=== PATIENT | female | born 1960 | race Caucasian/White ===

== ENCOUNTER 2019-07-29 19:36 | Emergency (ER) | payer OTHER, SELFPAY ==
[2019-07-29 19:38] VITALS: BP 159/71; PULSE 110; RESP 16; TEMP 36.3; O2SAT 94
--- NOTE | 2019-07-29 21:06 | ED.URI ---
HPI - URI/Sore Throat General Chief Complaint: Upper Respiratory Infection Stated Complaint: fever, cough Time Seen by Provider: 07/29/19 21:00 Source: patient and RN notes reviewed Mode of arrival: other Limitations: no limitations History of Present Illness HPI Narrative: Pt is a 59 y/o female who presents to the ED with c/o a fever and body aches that began Friday (07/26/19) night. Pt states that she believes that she is dehydrated. Pt has been taking Tylenol and Advil, but with no relief of her sx. Pt also reports SOB, cough, wheezing, nausea, nasal discharge, and decreased intake, but denies vomiting. MD elicited complaint: fever and other (body aches) Onset (ago): day(s) (3) Consistency: constant Able to tolerate fluids by mouth: Yes Relieving factors: nothing Associated symptoms: fever, cough, shortness of breath, nausea and other (wheezing, nasal discharge, decreased intake) Treatments prior to arrival: acetaminophen and cold medicine Related Data Allergies Allergy/AdvReac Type Severity Reaction Status Date / Time codeine Allergy Severe SOB Verified 10/24/17 07:08 Review of Systems Review of Systems: All systems reviewed & are unremarkable except as noted in HPI and below Constitutional: Constitutional: Reports fever(s) and Reports poor appetite ENT: Reports nasal discharge Respiratory: Respiratory: Reports cough, Reports dyspnea and Reports wheezing Gastrointestinal: Gastrointestinal: Reports nausea and Denies vomiting Musculoskeletal: Musculoskeletal: Reports myalgias PMFSH Past Medical History Medical History (Updated 07/29/19 @ 21:14 by Viktoriya Loaiza) DDD (degenerative disc disease) Diabetes Hyperlipidemia Kidney stone on right side Seasonal allergies Sleep apnea Surgical History Surgical History (Updated 07/29/19 @ 21:14 by Viktoriya Loaiza) H/O colonoscopy H/O lithotripsy H/O oral surgery History of bladder surgery History of hysterectomy Hx of section Family History Family History (Updated 12/22/15 @ 23:19 by DOCTOR UNKNOWN) Grandparent Cerebrovascular accident Family history of malignant neoplasm of cervix Father Family history of diabetes mellitus in first degree relative Social History Social History Gender identity (if verbalized by the patient): Female Exam Const: General: no acute distress, alert and ill appearing Orientation/consciousness: patient oriented x3 HENMT: General nose exam: Nasal discharge present Eyes: Pupils: Equal, round and reactive pupils present Chest: Chest palpation & inspection: normal inspection of the chest and abnormal inspection of the chest Resp: Effort & Inspection: normal respiratory effort Auscultation: clear to auscultation bilaterally Cardio: Rate: regular rate Rhythm: regular rhythm GI: GI Palp: Yes Soft to palpation and No Tenderness to palpation present (GI) Skin: General skin exam: normal color Neuro: General: patient oriented x3 and moves all extremities Speech: normal speech Extrem: General: normal to inspection Course Vital Signs Vital signs: Vital Signs Temperature 36.3 C L 07/29/19 19:38 Pulse Rate 110 H 07/29/19 19:38 Respiratory Rate 16 07/29/19 19:38 Blood Pressure 159/71 H 07/29/19 19:38 Pulse Oximetry 94 07/29/19 19:38 Temperature 36.3 C L 07/29/19 19:38 Pulse Rate 109 H 07/29/19 21:32 Respiratory Rate 20 07/29/19 21:32 Blood Pressure 159/71 H 07/29/19 19:38 Pulse Oximetry 94 07/29/19 19:38 MDM - URI/Sore Throat Differential Diagnosis Differential diagnosis: Likely upper respiratory infection, bronchitis and influenza Medical Records Attestation: I reviewed the patient's medical records. Lab Data Attestation: I reviewed the patient's lab results. Labs: Influenza A Screen Positive Reference Range: Negative Influenza B Screen Negative Reference Range: Negative Discharge Plan Discharge
[2019-07-29] MEDS: PSEUDOEPHEDRINE HCL 30 MG TABLET 60 MG PO (21:17)
[2019-07-29] MEDS: IBUPROFEN 600 MG TABLET PO (21:17)
[2019-07-29 21:25] VITALS: PULSE 106; RESP 20
[2019-07-29] MEDS: ALBUTEROL SULFATE NEB 2.5 MG/0.5 ML INH 5 MG INHALATION (21:25)
[2019-07-29 21:32] VITALS: PULSE 109; RESP 20
== END 2019-07-29 21:52 | disposition home or self-care (01) ==
PROVIDERS: Emergency Provider Emergency Medicine; PCP Family Medicine Adolescent Medicine
DX: J10.1 Influenza due to other identified influenza virus with other respiratory manifestations (principal); E11.9 Type 2 diabetes mellitus without complications; E78.5 Hyperlipidemia, unspecified; Z87.442 Personal history of urinary calculi; G47.30 Sleep apnea, unspecified
CPT/HCPCS: 87804; 94640; 99283; A9270

== ENCOUNTER 2019-08-02 10:03 | Inpatient (IN) | payer OTHER, SELFPAY ==
[2019-08-02] VITALS (8 sets, daily range): BP systolic 125–143; BP diastolic 56–76; PULSE 94–104; RESP 18–25; TEMP 37.1–37.3; O2SAT 92–98
--- NOTE | ~2019-08-02 | XR_ITS ---
XR chest 2V DATE: 08/08/2019 13:50 INDICATION: Pneumonia. Cough, congestion, shortness of breath. TECHNIQUE: PA and lateral views COMPARISON: 08/12/2019 AP and lateral chest 08/02/2019 CT pulmonary scan FINDINGS: There are persistent patchy bibasilar pulmonary infiltrates and/atelectasis. The remaining lung prakash are clear. Normal heart size. No hilar or mediastinal enlargement. No pleural effusion or pulmonary vascular con gestion or pneumothorax. IMPRESSION: Persistent bibasilar infiltrates and/or atelectasis Reviewed, dictated and finalized at location A.
--- NOTE | ~2019-08-02 | XR_ITS ---
EXAMINATION: XR chest 2V 08/02/2019 11:24 INDICATION: Cough, shortness of breath and congestion PROCEDURE: 2 view chest COMPARISON: 03/04/2012 FINDINGS: The lungs are clear. The cardiomediastinal silhouette is within normal limits. There are no pleural effusions. There is no pneumothorax suspected. IMPRESSION: 1: NO ACUTE CARDIOPULMONARY DISEASE. Reviewed, dictated and finalized at location A.
--- NOTE | ~2019-08-02 | CT_ITS ---
EXAMINATION: CTA chest PE protocol DATE: 08/02/2019 14:23 INDICATION: Cough. TECHNIQUE: Computed tomography angiography (CTA) of the chest was performed with 100 mL Omnipaque-350 intravenous contrast timed to evaluate the pulmonary arteries. Coronal maximum intensity projection 3D-reconstructions were created by the technologist. Automated exposure control and iterative reconst ruction technique were employed. The dose-length product was 379.93 mGy-cm. COMPARISON: Chest 2 views 08/02/2019 FINDINGS: There are groundglass opacities, centrilobular nodules, and small airspace opacities in the lower lobes, right middle lobe, and lingula, consistent with pneumonia. No pleural effusion. The hea rt size is normal. No pericardial effusion. There is no pulmonary embolus. There is mild mediastinal and bilateral hilar lymphadenopathy. There is diffuse hepatic steatosis. There is mild thoracic spond ylosis. IMPRESSION: 1. No pulmonary embolus. Sensitivity is moderately decreased by motion artifact. 2. Pneumonia involving the lower lobes, right middle lobe, and lingula. 3. Mild mediastinal and bilateral hilar lymphadenopathy, likely reactive. Reviewed, dictated and finalized at location A. IMPRESSION: 1. No pulmonary embolus. Sensitivity is moderately decreased by motion artifact . 2. Pneumonia involving the lower lobes, right middle lobe, and lingula. 3. Mild mediastinal and bilateral hilar lymphadenopathy, likely reactive.
--- NOTE | 2019-08-02 10:04 | PC.NURSE ---
Attempted to contact Jenny Armendariz for infection control alert on pt, no answer. ED Charge Khadijah aware, I was informed by ED Charge that pt is at low risk for infection and that she can sit in waiting room with other patients as long as she has a mask on.
--- NOTE | 2019-08-02 10:17 | ECG_ITS ---
Measurements Intervals [place] Rate: 95 P: 51 CA: 144 QRS: 2 QRSD: 102 T: 34 QT: 336 QTc: 422 Interpretive Statements SINUS RHYTHM BASELINE WANDER- I, II, AVR, AVL,A VF, V4-V6 BORDERLINE ECG Electronically Signed On 08-02-2019 13:01:18 CDT by Jose Carlos Tolliver D.O.
[2019-08-02 10:48] LABS: Hematocrit 37.3 % (37.0-47.0); Hemoglobin 12.7 g/dL (12.0-15.0); Mean Corpuscular Hemoglobin 29.2 pg (26-34); Mean Corpuscular Volume 85.7 fl (80-100); Mean Platelet Volume 9.8 fl (7.4-10.4); Platelet Count Result 154 k/mm3 (150-375); Red Blood Count 4.35 M/mm3 (4.2-5.4); Red Cell Distribution Width 13.2 % (11.5-14.5); White Blood Count 7.5 K/mm3 (4.5-10.0)
[2019-08-02 10:55] LABS: Band Neutrophils Percent 6 % (0-6); Eosinophils Absolute Manual 0.07 K/mm3 (0.02-0.5); Eosinophils Percent Manual 1 % (0-4); Lymphocytes Absolute Manual 1.05 K/mm3 (1.1-4.5); Monocytes Absolute Manual 0.67 K/mm3 (0.1-0.90); Monocytes Percent Manual 9 % (3-9); Neutrophils Percent Manual 70 % (46-73); Platelet Estimate Adequate (Adequate); Total Cells Counted 100
[2019-08-02 10:59] LABS: Blood Urea Nitrogen 17 mg/dL (7-17); Calcium 9.1 mg/dL (8.4-10.2); Carbon Dioxide 30 mmol/L (22-30); Chloride 92 mmol/L (98-107); Estimated CRCL calculation 55 ml/min; Estimated Glomerular Filt Rate > 60; Glucose 217 mg/dL (65-105); Potassium 3.2 mmol/L (3.4-5.0); Sodium 131 mmol/L (137-145)
--- NOTE | 2019-08-02 12:05 | ED.URI ---
HPI - URI/Sore Throat General Chief Complaint: Upper Respiratory Infection <Niki Soria PA-C - Last Filed: 08/02/19 17:58> Stated Complaint: Cough, Fatigue <Niki Soria PA-C - Last Filed: 08/02/19 17:58> Time Seen by Provider: 08/02/19 11:03 <Niki Soria PA-C - Last Filed: 08/02/19 17:58> Source: patient <LILLY Fragoso Last Filed: 08/02/19 17:58> Mode of arrival: ambulatory <LILLY Fragoso Last Filed: 08/02/19 17:58> Limitations: no limitations <LILLY Fragoso Last Filed: 08/02/19 17:58> History of Present Illness HPI Narrative: Patient presents for reevaluation due to tiredness, congestion and persistent cough. Patient was diagnosed with influenza on at this facility. Patient has been taking decongestant and ibuprofen. Patient no longer has fevers and her body aches have improved with patient is upset because her persistent cough keeps her from sleeping throughout the night and day. Patient's appetite has been slightly decreased however she has been drinking water and Gatorade. Patient has not had any vomiting or diarrhea. Patient states she has not been taking the zofran or using the proair inhaler. Patient has not tried any medications [id number] to alleviate her cough. Patient states her only has issues with his diabetes for which she takes metformin 3 times daily. <LILLY Fragoso Last Filed: 08/02/19 17:58> Related Data Home Medications: Home Medications Medication Instructions Recorded Confirmed dextromethorphan-guaifenesin 1 tablet PO Q12H PRN 08/02/19 [Mucinex DM] <LILLY Fragoso Last Filed: 08/02/19 17:58> Allergies/Adverse Reactions: Allergies Allergy/AdvReac Type Severity Reaction Status Date / Time codeine Allergy Severe SOB Verified 08/02/19 11:26 <LILLY Fragoso Last Filed: 08/02/19 17:58> Review of Systems Review of Systems: Narrative: CONSTITUTIONAL: Denies fever, chills, or sweats. EYES: Denies visual changes, redness, or discharge. ENT: Reports rhinorrhea, congestion, denies sore throat, or otalgia. CARDIOVASCULAR: Denies chest pain, palpitations, or edema. RESPIRATORY: Reports cough denies dyspnea. GASTROINTESTINAL: Denies abdominal pain, nausea, vomiting, or diarrhea. GENITOURINARY: Denies dysuria or hematuria. SKIN: Denies rash or itching. MUSCULOSKELETAL: Denies back pain, joint pain, or myalgia. NEUROLOGIC: Denies headache, numbness, dizziness, or weakness. PSYCHIATRIC: Denies anxiety or depression. <Niki Soria PA-C - Last Filed: 08/02/19 17:58> PMFSH Past Medical History Medical History: Medical History (Updated 08/02/19 @ 15:31 by Niki Soria PA-C) DDD (degenerative disc disease) Diabetes Hyperlipidemia Kidney stone on right side Seasonal allergies Sleep apnea <Niki Soria PA-C - Last Filed: 08/02/19 17:58> Surgical History Surgical History: Surgical History (Updated 07/29/19 @ 21:14 by Viktoriya Loaiza) H/O colonoscopy H/O lithotripsy H/O oral surgery History of bladder surgery History of hysterectomy Hx of section <Niki Soria PA-C - Last Filed: 08/02/19 17:58> Family History Family History: Family History (Updated 12/22/15 @ 23:19 by DOCTOR UNKNOWN) Grandparent Cerebrovascular accident Family history of malignant neoplasm of cervix Father Family history of diabetes mellitus in first degree relative <Niki Soria PA-C - Last Filed: 08/02/19 17:58> Social History Social History: Social History Gender identity (if verbalized by the patient): Female <Niki Soria PA-C - Last Filed: 08/02/19 17:58> Exam Narrative: Exam Narrative: GENERAL: Well-appearing, well-nourished, and in no acute distress. HEAD: Normocephalic, atraumatic. EYES: PERRLA and EOMI. ENT: Nares edematous with clear rhinorrhea, no rhinorrhea or epistaxis. Mucous membranes moist. Or
[2019-08-02] MEDS: ALBUTEROL SULFATE NEB 2.5 MG/0.5 ML INH 5 MG INHALATION (12:14)
[2019-08-02] MEDS: IPRATROPIUM BR 0.02% INH SOLN 0.5 MG/2.5 ML VIAL INHALATION (12:14)
[2019-08-02] MEDS: BENZONATATE 100 MG CAPSULE 200 MG PO (13:00)
[2019-08-02 15:19] LABS: Lactic Acid Reflex 1.4 mmol/L (0.7-2.1)
--- NOTE | 2019-08-02 17:50 | PC.NURSE ---
Pt has repeatedly complained of pain to right hand PIV with Azithromycin infusing. Medication has been briefly paused and then flushed with no evidence of infiltration or blown vein. Right AC PIV started as pt continually c/o right hand pain after 10 minutes of Azithromycin infusion despite no complications noted to IV site.
--- NOTE | 2019-08-02 19:31 | ADMGEN ---
This patient, Kaur Douglas, was admitted to Medical Room 246-01. Patient/family oriented to hospital policies and general routines including ID bracelet, bed and alarms, visiting hours, pain management, procedures, bathroom and other care routines, personal items, smoking policy, room service/diet, and visiting hours. Valuables list has been completed. Information on how to activate the Rapid Response Team has been discussed. Patient/Family are encouraged to report perceived risks to care and to ask questions if they do not understand what they are told or what they should do.
[2019-08-02 20:36] LABS: Glucose Point of Care 243 (65-105)
[2019-08-02] MEDS: POTASSIUM CHLORIDE 20 MEQ TABLET 40 MEQ PO (21:59)
--- NOTE | 2019-08-02 22:30 | PM.IMHP ---
H&P: HPI History of Present Illness Chief complaint: Cough and fatigue Narrative: Date and time of patient contact: 08/02/2019 at 10:30 p.m. Kaur Douglas is a 59 year old female with a past medical history of type 2 diabetes, mild obstructive sleep apnea and recent diagnosis of influenza A who presented to the ER with ongoing cough, congestion and fever. Patient reports that she became ill on July 25 after she returned from a cruise to the [facility]. She was evaluated in the ER on July 28 and was diagnosed with influenza A and discharged home with prescriptions for pseudoephedrine, Zofran, ibuprofen, and albuterol inhaler. She was not given Tamiflu. Her who symptoms did not start until after the patient started having symptoms was given a prescription for Tamiflu. The patient reports that despite directed her cough is actually worsened and she has been more short of breath. She must of been hypoxic in the ER as she was started on nasal cannula oxygen. However hypoxia was not documented in the vitals. Her cough is occasionally productive of blood streaked sputum. However she thinks that the blood is coming from her nose because when she blows her nose she has blood streaked mucus. She has been having nasal congestion and postnasal drip. She denies any headache or visual changes. She has been feeling generally weak. She was afebrile when she arrived to the ER. Her last fever at home was a couple of days ago was greater than 102?. She has had decreased oral intake/appetite and subsequently has not had a bowel movement in a couple of days. She denies any abdominal pain, nausea or vomiting. She has had some mild decreased urine output in her urine has been more concentrated. She stated that the breathing treatment that she received in the ER helped with her shortness of breath. She reports that she is chronically uncontrolled diabetes. She thinks that her last A1c was around 11. She does not check her glucoses. Review of Systems Review of Systems: Narrative: Except as documented in the HPI, all other systems were reviewed and are negative. [facility] Past Medical History Medical History (Updated 08/03/19 @ 01:46 by Heidy Nash DO) DDD (degenerative disc disease) Diabetes Glaucoma Right eye Hyperlipidemia Kidney stone on right side Seasonal allergies Sleep apnea Mild obstructive sleep apnea noted on sleep study from September 2015 Surgical History Surgical History (Updated 08/02/19 @ 21:45 by Heidy Nash DO) H/O colonoscopy H/O lithotripsy 2001 and 2006 H/O oral surgery History of bladder surgery History of total abdominal hysterectomy and bilateral salpingo-oophorectomy For benign causes Hx of section Family History Family History (Updated 08/02/19 @ 21:47 by Heidy Nash DO) Grandparent Cerebrovascular accident Cervical cancer Father Diabetes mellitus Dementia Mother Diabetes mellitus Sibling Diabetes mellitus Thyroid disease Social History Social History (Updated 08/03/19 @ 01:48 by Heidy Nash DO) Social History: Primary care physician: Dr. Joel Flores Code status: Full code Smoking status: Never smoker Alcohol intake: never Substance use: never Living arrangements: with family Additional living arrangements comments: She lives at home with her of 37 years. She has 2 adult children her relatively healthy. 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 Gender identity (if verbalized by the patient): Female Spiritual care concerns: No Agree to blood products: Yes Meds Home Medications and Allergies Home Medications Medication Instructions Recorded Confirmed Type albuterol sulfate 2 puff INHALATION QID PRN #8.5 gm 07/29/19 08/02/19 Rx ibuprofen 600 mg PO Q6H PRN #20 tablet 07/29/19 08/02/19 R
[2019-08-02] MEDS: ACETAMINOPHEN 325 MG TABLET 650 MG PO (23:41)
[2019-08-03] VITALS (12 sets, daily range): BP systolic 107–113; BP diastolic 56–60; PULSE 75–95; RESP 14–22; TEMP 36.1–37; O2SAT 84–95
[2019-08-03] MEDS: SODIUM CHLORIDE 0.9% IV 1,000 ML 100 ML IV CONT ×2 (02:22→12:20)
[2019-08-03] MEDS: ALBUTEROL SULFATE NEB 2.5 MG/0.5 ML INH 5 MG INHALATION ×4 (02:44→20:15)
[2019-08-03] MEDS: IPRATROPIUM BR 0.02% INH SOLN 0.5 MG/2.5 ML VIAL INHALATION ×4 (02:45→20:15)
[2019-08-03 06:24] LABS: Blood Urea Nitrogen 11 mg/dL (7-17); Calcium 8.3 mg/dL (8.4-10.2); Carbon Dioxide 33 mmol/L (22-30); Chloride 98 mmol/L (98-107); Estimated CRCL calculation 79 ml/min; Estimated Glomerular Filt Rate > 60; Glucose 153 mg/dL (65-105); Potassium 3.2 mmol/L (3.4-5.0); Sodium 136 mmol/L (137-145)
[2019-08-03 08:03] LABS: Glucose Point of Care 153 (65-105)
[2019-08-03] MEDS: ENOXAPARIN 40 MG/0.4 ML SYRINGE SUB-Q (09:28)
[2019-08-03] MEDS: POTASSIUM CHLORIDE 20 MEQ PACKET (FOR LIQUID) 40 MEQ PO (09:28)
[2019-08-03] MEDS: INSULIN ASPART (*BKC) 100 UNITS/ML SUB-Q (12:19)
[2019-08-03] MEDS: metFORMIN HCL 500 MG TABLET PO ×2 (12:20→16:45)
[2019-08-03 12:46] LABS: Glucose Point of Care 226 (65-105)
--- NOTE | 2019-08-03 15:16 | PM.IMPN ---
Progress Note: A&P Assessment and Plan (1) Pneumonia: Qualifiers: Laterality: bilateral Lung location: lower lobe of lung Pneumonia type: due to influenza A virus Qualified Code(s): J11.00 - Influenza due to unidentified influenza virus with unspecified type of pneumonia Code(s): J18.9 - Pneumonia, unspecified organism Status: Acute Assessment and Plan: 08/03/19 15:16 Patient is 59-year-old female recently returned [place] [facility] and was seen in emergency department with a runny nose cough congestion was diagnosed with influenza a patient returns now with her symptoms getting worse with persistent cough patient is is found to have a multifocal pneumonia patient is being treated with is a mycin Rocephin and vancomycin, today patient is feeling little better cough is getting better denies any fever or chills patient is poor historian, continue monitor repeat chest x-ray in 2 days and further recommendation to follow (2) Influenza: Code(s): J11.1 - Influenza due to unidentified influenza virus with other respiratory manifestations Status: Acute Assessment and Plan: Plan is above (3) Hypokalemia: Code(s): E87.6 - Hypokalemia Status: Acute Assessment and Plan: Most likely secondary to poor p.o. intake will monitor and supplement (4) Uncontrolled diabetes mellitus: Code(s): E11.65 - Type 2 diabetes mellitus with hyperglycemia Status: Acute Assessment and Plan: with A1c of 10 with uncontrolled DM will continue home regiement and have para educator consult. Subjective Date/time seen: 08/03/19 15:16 Patient is 59-year-old female recently [place] [facility] and was seen in emergency department with a runny nose cough congestion was diagnosed with influenza a patient returns now with her symptoms getting worse with persistent cough patient is is found to have a multifocal pneumonia patient is being treated with is a mycin Rocephin and vancomycin, today patient is feeling little better cough is getting better denies any fever or chills patient is poor historian Review of Systems Review of Systems: All systems reviewed & are unremarkable except as noted in HPI and below Exam Narrative: Exam Narrative: Appears chronically ill older than her age Const: General: comfortable and no acute distress HENMT: General nose exam: Normal nares present Mouth: Yes moist mucous membranes Eyes: General: appearance normal, both eyes and all related structures Sclera: sclerae normal Neck: Neck: supple Resp: Other: Bilateral poor air entry with rhonchi Cardio: Rate: regular rate Rhythm: regular rhythm GI: Auscultation: normal bowel sounds Skin: General skin exam: normal color Neuro: Speech: normal speech Sensory Exam: normal sensation Extrem: General: normal to inspection Psych: Affect: Anxious affect present Objective Data Vital Signs Vital Signs: Vital Signs - 24 hr 08/02/19 16:15 08/02/19 19:03 08/02/19 22:00 Temperature 99.1 F Pulse Rate 98 97 94 Respiratory Rate 22 H 22 H 18 Blood Pressure 134/65 125/61 129/56 L Pulse Oximetry 93 98 96 08/03/19 02:45 08/03/19 02:54 08/03/19 06:00 Temperature 97 F L Pulse Rate 86 90 75 Respiratory Rate 20 22 H 18 Blood Pressure 111/60 Pulse Oximetry 95 08/03/19 09:28 08/03/19 09:38 08/03/19 14:00 Temperature 97.5 F L Pulse Rate 88 95 Respiratory Rate 20 14 Blood Pressure 107/57 L Pulse Oximetry 93 84 L Intake/Output Intake/Output: Intake & Output 07/31/19 08/01/19 08/02/19 08/03/19 22:59 23:59 23:59 23:59 Intake Total 550 1820 Output Total 700 Balance 550 1120 Meds/Results Medications: Active Medications Generic Name Dose Route Start Last Admin Trade Name Freq PRN Reason Stop Dose Admin Acetaminophen 650 mg 08/02/19 23:17 08/02/19 23:41 Tylenol Tablet PO 650 mg Q4H PRN Administration Mild Pain (1-3
[2019-08-03] MEDS: ACETAMINOPHEN 325 MG TABLET 650 MG PO (17:16)
[2019-08-03 17:43] LABS: Glucose Point of Care 197 (65-105)
[2019-08-03] MEDS: LATANOPROST 0.005% OP SOLN 2.5 ML BTL 1 DROP RIGHT EYE (20:18)
[2019-08-03 21:35] LABS: Glucose Point of Care 195 (65-105)
[2019-08-04] VITALS (11 sets, daily range): BP systolic 134–135; BP diastolic 60–67; PULSE 83–99; RESP 16–20; TEMP 36.8–37.8; O2SAT 95–96
[2019-08-04] MEDS: SODIUM CHLORIDE 0.9% IV 1,000 ML 100 ML IV CONT ×2 (01:42→11:31)
[2019-08-04] MEDS: IPRATROPIUM BR 0.02% INH SOLN 0.5 MG/2.5 ML VIAL INHALATION ×4 (02:50→20:14)
[2019-08-04] MEDS: ALBUTEROL SULFATE NEB 2.5 MG/0.5 ML INH 5 MG INHALATION ×4 (02:50→20:14)
[2019-08-04 05:36] LABS: Hematocrit 32.8 % (37.0-47.0); Hemoglobin 10.8 g/dL (12.0-15.0); Mean Corpuscular HGB Conc 32.9 g/dl (32-36); Mean Corpuscular Volume 88.2 fl (80-100); Mean Platelet Volume 9.8 fl (7.4-10.4); Platelet Count Result 161 k/mm3 (150-375); Red Blood Count 3.72 M/mm3 (4.2-5.4); Red Cell Distribution Width 13.3 % (11.5-14.5); White Blood Count 8.1 K/mm3 (4.5-10.0)
[2019-08-04 06:09] LABS: Blood Urea Nitrogen 10 mg/dL (7-17); Calcium 8.1 mg/dL (8.4-10.2); Carbon Dioxide 29 mmol/L (22-30); Chloride 104 mmol/L (98-107); Estimated CRCL calculation 79 ml/min; Estimated Glomerular Filt Rate > 60; Glucose 186 mg/dL (65-105); Potassium 3.4 mmol/L (3.4-5.0); Sodium 138 mmol/L (137-145)
[2019-08-04] MEDS: ENOXAPARIN 40 MG/0.4 ML SYRINGE SUB-Q (08:52)
[2019-08-04] MEDS: metFORMIN HCL 500 MG TABLET PO ×3 (08:52→17:56)
[2019-08-04 09:07] LABS: Glucose Point of Care 173 (65-105)
[2019-08-04 12:46] LABS: Glucose Point of Care 197 (65-105)
[2019-08-04 18:04] LABS: Glucose Point of Care 162 (65-105)
--- NOTE | 2019-08-04 18:18 | PM.IMPN ---
Progress Note: A&P Assessment and Plan (1) Uncontrolled diabetes mellitus: Code(s): E11.65 - Type 2 diabetes mellitus with hyperglycemia Status: Acute Assessment and Plan: with A1c of 10 with uncontrolled DM (2) Hypokalemia: Code(s): E87.6 - Hypokalemia Status: Acute Assessment and Plan: Most likely secondary to poor p.o. intake and general illness. (3) Influenza: Code(s): J11.1 - Influenza due to unidentified influenza virus with other respiratory manifestations Status: Acute Assessment and Plan: Plan is above. Pt did not have the tamiflu (4) Pneumonia: Qualifiers: Laterality: bilateral Lung location: lower lobe of lung Pneumonia type: due to influenza A virus Qualified Code(s): J11.00 - Influenza due to unidentified influenza virus with unspecified type of pneumonia Code(s): J18.9 - Pneumonia, unspecified organism Status: Acute Assessment and Plan: Patient is 59-year-old female recently returned from cruise to [facility] and was seen in emergency department with a runny nose cough congestion was diagnosed with influenza a patient returns now with her symptoms getting worse with persistent cough patient is is found to have a multifocal pneumonia patient is being treated with is a Rocephin and vancomycin, as before still has mild cough no SOB, no chest discomfort. Continue current care. WCC are Normal. BC negative to date. Pneumonia found on ct chest. Subjective Date/time seen: 08/04/19 18:18 Interval history: 59 year old female with a past medical history of type 2 diabetes, mild obstructive sleep apnea and recent diagnosis of influenza A who presented to the ER with ongoing cough, congestion and fever. Patient reports that she became ill on July 25 after she returned from a cruise to the [facility]. She was evaluated in the ER on July 28 and was diagnosed with influenza A and discharged home with prescriptions for pseudoephedrine, Zofran, ibuprofen, and albuterol inhaler. She was not given Tamiflu. Pt still has slight cough. Seen in the room not SOB. No other specific complaints. Review of Systems Review of Systems: All systems reviewed & are unremarkable except as noted in HPI and below Respiratory: Respiratory: Reports chest congestion and Reports cough Exam Narrative: Exam Narrative: Appears chronically ill older than her age Const: General: comfortable and no acute distress HENMT: General nose exam: Normal nares present Mouth: Yes moist mucous membranes Eyes: General: appearance normal, both eyes and all related structures Sclera: sclerae normal Neck: Neck: supple Resp: Other: Bilateral poor entry with wheeze Cardio: Rate: regular rate Rhythm: regular rhythm GI: Auscultation: normal bowel sounds Skin: General skin exam: normal color Neuro: Speech: normal speech Sensory Exam: normal sensation Extrem: General: normal to inspection Psych: Affect: Anxious affect present Objective Data Vital Signs Vital Signs: Vital Signs - 24 hr 08/03/19 20:15 08/03/19 20:27 08/03/19 20:28 Temperature Pulse Rate 84 82 Respiratory Rate 20 20 Blood Pressure Pulse Oximetry 93 08/03/19 22:00 08/04/19 02:50 08/04/19 03:00 Temperature 37.0 C Pulse Rate 90 83 85 Respiratory Rate 16 20 20 Blood Pressure 113/56 L Pulse Oximetry 95 08/04/19 06:00 08/04/19 09:22 08/04/19 09:33 Temperature 37.0 C Pulse Rate 99 85 84 Respiratory Rate 16 18 18 Blood Pressure 134/60 Pulse Oximetry 95 08/04/19 14:00 08/04/19 15:19 08/04/19 15:28 Temperature 37.8 C H Pulse Rate 90 83 85 Respiratory Rate 16 16 16 Blood Pressure 135/65 Pulse Oximetry 95 Intake/Output Intake/Output: Intake & Output 08/01/19 08/02/19 08/03/19 08/04/19 23:59 23:59 23:59 23:59 Intake Total 550 1425 2527 Output Total 1999 2049 Balance 550 1373 827 Meds/Results Medications: Active Medication
[2019-08-04] MEDS: LATANOPROST 0.005% OP SOLN 2.5 ML BTL 1 DROP RIGHT EYE (20:22)
[2019-08-05] VITALS (13 sets, daily range): BP systolic 135–150; BP diastolic 61–74; PULSE 80–96; RESP 14–20; TEMP 36.7–37.1; O2SAT 87–96
[2019-08-05] MEDS: SODIUM CHLORIDE 0.9% IV 1,000 ML 100 ML IV CONT ×2 (00:33→10:40)
[2019-08-05] MEDS: ALBUTEROL SULFATE NEB 2.5 MG/0.5 ML INH 5 MG INHALATION ×4 (01:52→20:12)
[2019-08-05] MEDS: IPRATROPIUM BR 0.02% INH SOLN 0.5 MG/2.5 ML VIAL INHALATION ×4 (01:52→20:11)
[2019-08-05 05:35] LABS: Glucose Point of Care 170 (65-105)
[2019-08-05 06:09] LABS: Hematocrit 32.9 % (37.0-47.0); Hemoglobin 10.7 g/dL (12.0-15.0); Mean Corpuscular HGB Conc 32.5 g/dl (32-36); Mean Corpuscular Hemoglobin 28.5 pg (26-34); Mean Corpuscular Volume 87.7 fl (80-100); Mean Platelet Volume 9.4 fl (7.4-10.4); Platelet Count Result 159 k/mm3 (150-375); Red Blood Count 3.75 M/mm3 (4.2-5.4); Red Cell Distribution Width 13.1 % (11.5-14.5)
[2019-08-05 06:25] LABS: Blood Urea Nitrogen 6 mg/dL (7-17); Calcium 7.9 mg/dL (8.4-10.2); Carbon Dioxide 29 mmol/L (22-30); Chloride 102 mmol/L (98-107); Estimated CRCL calculation 79 ml/min; Estimated Glomerular Filt Rate > 60; Glucose 157 mg/dL (65-105); Potassium 3.2 mmol/L (3.4-5.0); Sodium 136 mmol/L (137-145)
[2019-08-05] MEDS: metFORMIN HCL 500 MG TABLET PO ×3 (08:36→17:14)
[2019-08-05] MEDS: ENOXAPARIN 40 MG/0.4 ML SYRINGE SUB-Q (08:36)
[2019-08-05 08:44] LABS: Glucose Point of Care 155 (65-105)
[2019-08-05 12:04] LABS: Glucose Point of Care 192 (65-105)
--- NOTE | 2019-08-05 13:56 | PC.NURSE ---
Per chastity Gomez to DC droplet precautions at this time.
[2019-08-05 17:31] LABS: Glucose Point of Care 171 (65-105)
--- NOTE | 2019-08-05 18:22 | PM.IMPN ---
Progress Note: A&P Assessment and Plan (1) Uncontrolled diabetes mellitus: Code(s): E11.65 - Type 2 diabetes mellitus with hyperglycemia Status: Acute Assessment and Plan: with A1c of 10 with uncontrolled DM (2) Hypokalemia: Code(s): E87.6 - Hypokalemia Status: Acute Assessment and Plan: Most likely secondary to poor p.o. intake and general illness. (3) Influenza: Code(s): J11.1 - Influenza due to unidentified influenza virus with other respiratory manifestations Status: Acute Assessment and Plan: Plan is above. Pt did not have the tamiflu (4) Pneumonia: Qualifiers: Laterality: bilateral Lung location: lower lobe of lung Pneumonia type: due to influenza A virus Qualified Code(s): J11.00 - Influenza due to unidentified influenza virus with unspecified type of pneumonia Code(s): J18.9 - Pneumonia, unspecified organism Status: Acute Assessment and Plan: Patient is 59-year-old female recently returned from cruise to [facility] and was seen in emergency department with a runny nose cough congestion was diagnosed with influenza a patient returns now with her symptoms getting worse with persistent cough patient is is found to have a multifocal pneumonia patient is being treated with is a Rocephin and vancomycin, as before still has mild cough no SOB, no chest discomfort. Continue current care. WCC are Normal. BC negative to date. Pneumonia found on ct chest. Subjective Date/time seen: 08/05/19 18:22 Interval history: 59 year old female with a past medical history of type 2 diabetes, mild obstructive sleep apnea and recent diagnosis of influenza A who presented to the ER with ongoing cough, congestion and fever. Patient reports that she became ill on July 25 after she returned from a cruise to the [facility]. She was evaluated in the ER on July 28 and was diagnosed with influenza A and discharged home with prescriptions for pseudoephedrine, Zofran, ibuprofen, and albuterol inhaler. She was not given Tamiflu. Pt still has slight cough. Seen in the room not SOB. Ongoing cough and fatigue Review of Systems Review of Systems: All systems reviewed & are unremarkable except as noted in HPI and below Respiratory: Respiratory: Reports chest congestion and Reports cough Exam Narrative: Exam Narrative: Unwell with cough Const: General: comfortable and no acute distress HENMT: General nose exam: Normal nares present Mouth: Yes moist mucous membranes Eyes: General: appearance normal, both eyes and all related structures Sclera: sclerae normal Neck: Neck: supple Resp: Other: Few scattered wheezes Cardio: Rate: regular rate Rhythm: regular rhythm GI: Auscultation: normal bowel sounds Skin: General skin exam: normal color Neuro: Speech: normal speech Sensory Exam: normal sensation Extrem: General: normal to inspection Psych: Affect: Anxious affect present Objective Data Vital Signs Vital Signs: Vital Signs - 24 hr 08/04/19 20:14 08/04/19 20:23 08/04/19 22:00 Temperature 36.8 C Pulse Rate 97 92 96 Respiratory Rate 20 18 16 Blood Pressure 135/67 Pulse Oximetry 96 95 08/05/19 01:52 08/05/19 02:01 08/05/19 06:00 Temperature 36.8 C Pulse Rate 91 93 87 Respiratory Rate 16 20 20 Blood Pressure 140/68 Pulse Oximetry 87 L 96 08/05/19 09:08 08/05/19 09:21 08/05/19 10:10 Temperature Pulse Rate 84 96 Respiratory Rate 18 18 Blood Pressure Pulse Oximetry 93 92 08/05/19 14:00 08/05/19 15:34 08/05/19 15:41 Temperature 37.1 C Pulse Rate 88 84 80 Respiratory Rate 14 18 18 Blood Pressure 135/61 Pulse Oximetry 94 Intake/Output Intake/Output: Intake & Output 08/02/19 08/03/19 08/04/19 08/05/19 23:59 23:59 23:59 23:59 Intake Total 550 1894 9011 3657 Output Total 1999 2049 2699 Balance 550 4303 1754 951 Meds/Results Medications: Active Medications Generic Name Dose
[2019-08-05 19:03] LABS: Vancomycin Trough < 5.0 ug/mL (10.0-20.0)
[2019-08-05] MEDS: LATANOPROST 0.005% OP SOLN 2.5 ML BTL 1 DROP RIGHT EYE (19:53)
[2019-08-06] VITALS (13 sets, daily range): BP systolic 135–158; BP diastolic 71–74; PULSE 69–94; RESP 16–20; TEMP 36.2–36.9; O2SAT 92–96
[2019-08-06] MEDS: SODIUM CHLORIDE 0.9% IV 1,000 ML 100 ML IV CONT (01:07)
[2019-08-06] MEDS: IPRATROPIUM BR 0.02% INH SOLN 0.5 MG/2.5 ML VIAL INHALATION ×4 (01:55→19:15)
[2019-08-06] MEDS: ALBUTEROL SULFATE NEB 2.5 MG/0.5 ML INH 5 MG INHALATION ×4 (01:55→19:15)
[2019-08-06 02:56] LABS: Glucose Point of Care 148 (65-105)
[2019-08-06 05:11] LABS: Hematocrit 32.6 % (37.0-47.0); Hemoglobin 10.7 g/dL (12.0-15.0); Mean Corpuscular HGB Conc 32.8 g/dl (32-36); Mean Corpuscular Hemoglobin 28.7 pg (26-34); Mean Corpuscular Volume 87.4 fl (80-100); Mean Platelet Volume 9.5 fl (7.4-10.4); Platelet Count Result 160 k/mm3 (150-375); Red Blood Count 3.73 M/mm3 (4.2-5.4)
[2019-08-06 05:22] LABS: Blood Urea Nitrogen 5 mg/dL (7-17); Calcium 8.2 mg/dL (8.4-10.2); Carbon Dioxide 31 mmol/L (22-30); Chloride 103 mmol/L (98-107); Estimated CRCL calculation 79 ml/min; Estimated Glomerular Filt Rate > 60; Glucose 154 mg/dL (65-105); Potassium 3.2 mmol/L (3.4-5.0); Sodium 137 mmol/L (137-145)
[2019-08-06] MEDS: metFORMIN HCL 500 MG TABLET PO ×3 (09:18→18:03)
[2019-08-06] MEDS: ENOXAPARIN 40 MG/0.4 ML SYRINGE SUB-Q (09:19)
[2019-08-06 09:44] LABS: Glucose Point of Care 148 (65-105)
[2019-08-06 11:54] LABS: Glucose Point of Care 199 (65-105)
--- NOTE | 2019-08-06 17:00 | PM.IMPN ---
Progress Note: A&P Assessment and Plan (1) Uncontrolled diabetes mellitus: Code(s): E11.65 - Type 2 diabetes mellitus with hyperglycemia Status: Acute Assessment and Plan: with A1c of 10 with uncontrolled DM (2) Hypokalemia: Code(s): E87.6 - Hypokalemia Status: Acute Assessment and Plan: Most likely secondary to poor p.o. intake and general illness. (3) Influenza: Code(s): J11.1 - Influenza due to unidentified influenza virus with other respiratory manifestations Status: Acute Assessment and Plan: Plan is above. Pt did not have the tamiflu (4) Pneumonia: Qualifiers: Laterality: bilateral Lung location: lower lobe of lung Pneumonia type: due to influenza A virus Qualified Code(s): J11.00 - Influenza due to unidentified influenza virus with unspecified type of pneumonia Code(s): J18.9 - Pneumonia, unspecified organism Status: Acute Assessment and Plan: Patient is 59-year-old female recently returned from cruise to [facility] and was seen in emergency department with a runny nose cough congestion was diagnosed with influenza a patient returns now with her symptoms getting worse with persistent cough patient is is found to have a multifocal pneumonia patient is being treated with is a Rocephin and vancomycin, as before still has mild cough no SOB, no chest discomfort. Continue current care. WCC are 6. BC negative to date. Pneumonia found on ct chest. Hopeful discharge soon on Friday. Subjective Date/time seen: 08/06/19 17:00 Interval history: 59 year old female with a past medical history of type 2 diabetes, mild obstructive sleep apnea and recent diagnosis of influenza A who presented to the ER with ongoing cough, congestion and fever. Patient reports that she became ill on July 25 after she returned from a cruise to the [facility]. She was evaluated in the ER on July 28 and was diagnosed with influenza A and discharged home with prescriptions for pseudoephedrine, Zofran, ibuprofen, and albuterol inhaler. She was not given Tamiflu. Pt feels better not sob no cough, mild drainage and chest tightness and ear fullness Review of Systems Review of Systems: All systems reviewed & are unremarkable except as noted in HPI and below Constitutional: Constitutional: Reports fatigue Respiratory: Respiratory: Reports chest congestion, Denies cough and Denies dyspnea Comments: Chest discomfort, ear fullness Exam Narrative: Exam Narrative: Const: General: comfortable and no acute distress HENMT: General nose exam: Normal nares present Mouth: Yes moist mucous membranes Eyes: General: appearance normal, both eyes and all related structures Sclera: sclerae normal Neck: Neck: supple Resp: Other: Few scattered wheezes Cardio: Rate: regular rate Rhythm: regular rhythm GI: Auscultation: normal bowel sounds Skin: General skin exam: normal color Neuro: Speech: normal speech Sensory Exam: normal sensation Extrem: General: normal to inspection Psych: Affect: Anxious affect present Objective Data Vital Signs Vital Signs: Vital Signs - 24 hr 08/05/19 20:12 08/05/19 20:14 08/05/19 20:17 Temperature Pulse Rate 87 88 Respiratory Rate 18 18 Blood Pressure Pulse Oximetry 94 08/05/19 22:00 08/06/19 01:55 08/06/19 02:03 Temperature 36.7 C Pulse Rate 92 84 86 Respiratory Rate 16 18 18 Blood Pressure 150/74 H Pulse Oximetry 95 08/06/19 06:00 08/06/19 09:08 08/06/19 09:09 Temperature 36.2 C L Pulse Rate 69 83 Respiratory Rate 20 18 Blood Pressure 135/72 Pulse Oximetry 92 92 08/06/19 09:15 08/06/19 13:49 08/06/19 13:59 Temperature Pulse Rate 78 81 Respiratory Rate 18 18 18 Blood Pressure Pulse Oximetry 08/06/19 14:00 Temperature 36.9 C Pulse Rate 94 Respiratory Rate 16 Blood Pressure 149/71 H Pulse Oximetry 95 Intake/Output Intake/Output: Intake & Output
[2019-08-06 18:15] LABS: Glucose Point of Care 102 (65-105)
[2019-08-06] MEDS: LATANOPROST 0.005% OP SOLN 2.5 ML BTL 1 DROP RIGHT EYE (20:19)
[2019-08-07] VITALS (10 sets, daily range): BP systolic 138–149; BP diastolic 59–72; PULSE 70–90; RESP 14–20; TEMP 36.1–36.6; O2SAT 94–98
[2019-08-07] MEDS: ALBUTEROL SULFATE NEB 2.5 MG/0.5 ML INH 5 MG INHALATION ×4 (01:17→20:34)
[2019-08-07] MEDS: IPRATROPIUM BR 0.02% INH SOLN 0.5 MG/2.5 ML VIAL INHALATION ×4 (01:17→20:34)
[2019-08-07 05:34] LABS: Hematocrit 31.7 % (37.0-47.0); Hemoglobin 10.4 g/dL (12.0-15.0); Mean Corpuscular HGB Conc 32.8 g/dl (32-36); Mean Corpuscular Hemoglobin 28.9 pg (26-34); Mean Corpuscular Volume 88.1 fl (80-100); Mean Platelet Volume 9.9 fl (7.4-10.4); Platelet Count Result 163 k/mm3 (150-375); Red Cell Distribution Width 12.9 % (11.5-14.5); White Blood Count 4.9 K/mm3 (4.5-10.0)
[2019-08-07 05:57] LABS: Blood Urea Nitrogen 6 mg/dL (7-17); Calcium 8.6 mg/dL (8.4-10.2); Carbon Dioxide 34 mmol/L (22-30); Chloride 101 mmol/L (98-107); Estimated CRCL calculation 79 ml/min; Estimated Glomerular Filt Rate > 60; Glucose 147 mg/dL (65-105); Potassium 3.2 mmol/L (3.4-5.0); Sodium 137 mmol/L (137-145)
[2019-08-07 07:50] LABS: Glucose Point of Care 212 (65-105)
[2019-08-07] MEDS: metFORMIN HCL 500 MG TABLET PO ×3 (09:25→18:08)
[2019-08-07] MEDS: ENOXAPARIN 40 MG/0.4 ML SYRINGE SUB-Q (09:25)
[2019-08-07 11:52] LABS: Glucose Point of Care 191 (65-105)
[2019-08-07 17:15] LABS: Glucose Point of Care 135 (65-105)
--- NOTE | 2019-08-07 17:44 | PM.IMPN ---
Progress Note: A&P Assessment and Plan (1) Uncontrolled diabetes mellitus: Code(s): E11.65 - Type 2 diabetes mellitus with hyperglycemia Status: Acute Assessment and Plan: with A1c of 10 with uncontrolled DM (2) Hypokalemia: Code(s): E87.6 - Hypokalemia Status: Acute Assessment and Plan: Most likely secondary to poor p.o. intake and general illness. (3) Influenza: Code(s): J11.1 - Influenza due to unidentified influenza virus with other respiratory manifestations Status: Acute Assessment and Plan: Plan is above. Pt did not have the tamiflu (4) Pneumonia: Qualifiers: Laterality: bilateral Lung location: lower lobe of lung Pneumonia type: due to influenza A virus Qualified Code(s): J11.00 - Influenza due to unidentified influenza virus with unspecified type of pneumonia Code(s): J18.9 - Pneumonia, unspecified organism Status: Acute Assessment and Plan: Patient is 59-year-old female recently returned from cruise to [facility] and was seen in emergency department with a runny nose cough congestion was diagnosed with influenza a patient returns now with her symptoms getting worse with persistent cough patient is is found to have a multifocal pneumonia patient is being treated with is a Rocephin and vancomycin, as before still has mild cough no SOB, no chest discomfort. Continue current care. WCC are 6. BC negative to date. Pneumonia found on ct chest. Hopeful discharge soon on Friday. Subjective Date/time seen: 08/07/19 17:44 Interval history: 59 year old female with a past medical history of type 2 diabetes, mild obstructive sleep apnea and recent diagnosis of influenza A who presented to the ER with ongoing cough, congestion and fever. Patient reports that she became ill on July 25 after she returned from a cruise to the [facility]. She was evaluated in the ER on July 28 and was diagnosed with influenza A and discharged home with prescriptions for pseudoephedrine, Zofran, ibuprofen, and albuterol inhaler. She was not given Tamiflu. Pt feels better not sob no cough,mild ear fullness Review of Systems Review of Systems: All systems reviewed & are unremarkable except as noted in HPI and below Constitutional: Constitutional: Reports fatigue ENT: Comments: Ear fullness Exam Narrative: Exam Narrative: Const: General: comfortable and no acute distress HENMT: General nose exam: Normal nares present Mouth: Yes moist mucous membranes Eyes: General: appearance normal, both eyes and all related structures Sclera: sclerae normal Objective Data Vital Signs Vital Signs: Vital Signs - 24 hr 08/06/19 19:16 08/06/19 19:17 08/06/19 19:26 Temperature Pulse Rate 82 82 Respiratory Rate 18 18 Blood Pressure Pulse Oximetry 93 08/06/19 22:00 08/07/19 01:18 08/07/19 01:30 Temperature 36.4 C L Pulse Rate 84 79 78 Respiratory Rate 18 18 18 Blood Pressure 158/74 H Pulse Oximetry 96 08/07/19 06:00 08/07/19 08:00 08/07/19 09:17 Temperature 36.5 C Pulse Rate 80 70 70 Respiratory Rate 20 20 20 Blood Pressure 149/71 H Pulse Oximetry 98 98 08/07/19 14:00 08/07/19 15:24 Temperature 36.6 C Pulse Rate 83 80 Respiratory Rate 14 20 Blood Pressure 138/72 Pulse Oximetry 94 Intake/Output Intake/Output: Intake & Output 08/04/19 08/05/19 08/06/19 08/07/19 23:59 23:59 23:59 23:59 Intake Total 3802 5105 3369 1830 Output Total 2050 2700 2800 1600 Balance 1752 2405 569 230 Meds/Results Medications: Active Medications Generic Name Dose Route Start Last Admin Trade Name Freq PRN Reason Stop Dose Admin Acetaminophen 650 mg 08/02/19 23:17 08/03/19 17:16 Tylenol Tablet PO 650 mg Q4H PRN Administration Mild Pain (1-3) or Fever Albuterol 5 mg 08/03/19 02:00 08/07/19 15:23 Albuterol Sulf Neb 2.5mg/0.5ml INHALATION 5 mg Q6HRT [place] Administration Dextrose 12.5 gm
[2019-08-07 18:17] LABS: Glucose Point of Care 140 (65-105)
[2019-08-07] MEDS: LATANOPROST 0.005% OP SOLN 2.5 ML BTL 1 DROP RIGHT EYE (20:03)
[2019-08-08] VITALS (11 sets, daily range): BP systolic 119–151; BP diastolic 50–68; PULSE 76–91; RESP 16–18; TEMP 36.1–36.7; O2SAT 94–97
[2019-08-08] MEDS: ALBUTEROL SULFATE NEB 2.5 MG/0.5 ML INH 5 MG INHALATION ×4 (02:41→19:51)
[2019-08-08] MEDS: IPRATROPIUM BR 0.02% INH SOLN 0.5 MG/2.5 ML VIAL INHALATION ×4 (02:41→19:50)
[2019-08-08 05:26] LABS: Hematocrit 31.7 % (37.0-47.0); Hemoglobin 10.4 g/dL (12.0-15.0); Mean Corpuscular HGB Conc 32.8 g/dl (32-36); Mean Corpuscular Volume 88.3 fl (80-100); Mean Platelet Volume 9.5 fl (7.4-10.4); Platelet Count Result 192 k/mm3 (150-375); Red Blood Count 3.59 M/mm3 (4.2-5.4); Red Cell Distribution Width 12.8 % (11.5-14.5); White Blood Count 5.4 K/mm3 (4.5-10.0)
[2019-08-08 05:43] LABS: Blood Urea Nitrogen 7 mg/dL (7-17); Calcium 8.7 mg/dL (8.4-10.2); Carbon Dioxide 36 mmol/L (22-30); Chloride 100 mmol/L (98-107); Estimated CRCL calculation 79 ml/min; Estimated Glomerular Filt Rate > 60; Glucose 147 mg/dL (65-105); Potassium 3.6 mmol/L (3.4-5.0); Sodium 137 mmol/L (137-145)
[2019-08-08 06:06] LABS: Glucose Point of Care 222 (65-105)
[2019-08-08] MEDS: SALINE 0.65% NAS SOLN 44 ML BTL 1 SPRAY NASAL (08:35)
[2019-08-08] MEDS: metFORMIN HCL 500 MG TABLET PO ×3 (08:35→18:10)
[2019-08-08] MEDS: ENOXAPARIN 40 MG/0.4 ML SYRINGE SUB-Q (08:36)
[2019-08-08 10:06] LABS: Glucose Point of Care 179 (65-105)
[2019-08-08 11:59] LABS: Glucose Point of Care 143 (65-105)
--- NOTE | 2019-08-08 13:27 | PM.IMPN ---
Progress Note: A&P Assessment and Plan (1) Uncontrolled diabetes mellitus: Code(s): E11.65 - Type 2 diabetes mellitus with hyperglycemia Status: Acute Assessment and Plan: with A1c of 10 with uncontrolled DM will have lay out former educate the patient (2) Hypokalemia: Code(s): E87.6 - Hypokalemia Status: Acute Assessment and Plan: Most likely secondary to poor p.o. intake and general illness. (3) Influenza: Code(s): J11.1 - Influenza due to unidentified influenza virus with other respiratory manifestations Status: Acute Assessment and Plan: Plan is above. Pt did not have the tamiflu (4) Pneumonia: Qualifiers: Laterality: bilateral Lung location: lower lobe of lung Pneumonia type: due to influenza A virus Qualified Code(s): J11.00 - Influenza due to unidentified influenza virus with unspecified type of pneumonia Code(s): J18.9 - Pneumonia, unspecified organism Status: Acute Assessment and Plan: 59 year old female with a past medical history of type 2 diabetes, mild obstructive sleep apnea and recent diagnosis of influenza A who presented to the ER with ongoing cough, congestion and fever. Patient reports that she became ill on July 25 after she returned from a cruise to the [facility]. She was evaluated in the ER on July 28 and was diagnosed with influenza A and discharged home with prescriptions for pseudoephedrine, Zofran, ibuprofen, and albuterol inhaler. She was not given Tamiflu. See presented emergency department on 08/01 with cough shortness of breath patient was positive for pneumonia as she was positive for influenza A earlier patient is being treated azithromycin Rocephin and vancomycin, today patient is feeling better a short of breath cough is also improved denies any fever or chills wants to go home, repeat chest x-ray still shows persistent pneumonia I have discussed with the patient will continue IV antibiotics for 1 more day and may discharge the patient tomorrow morning Subjective Date/time seen: 08/08/19 13:27 Interval history: 59 year old female with a past medical history of type 2 diabetes, mild obstructive sleep apnea and recent diagnosis of influenza A who presented to the ER with ongoing cough, congestion and fever. Patient reports that she became ill on July 25 after she returned from a cruise to the [facility]. She was evaluated in the ER on July 28 and was diagnosed with influenza A and discharged home with prescriptions for pseudoephedrine, Zofran, ibuprofen, and albuterol inhaler. She was not given Tamiflu. See presented emergency department on 08/01 with cough shortness of breath patient was positive for pneumonia as she was positive for influenza A earlier patient is being treated azithromycin Rocephin and vancomycin, today patient is feeling better a short of breath cough is also improved denies any fever or chills wants to go home, repeat chest x-ray still shows persistent pneumonia I have discussed with the patient will continue IV antibiotics for 1 more day and may discharge the patient tomorrow morning Pt feels better not sob no cough,mild ear fullness Review of Systems Review of Systems: All systems reviewed & are unremarkable except as noted in HPI and below Exam Narrative: Exam Narrative: Const: General: comfortable and no acute distress HENMT: General nose exam: Normal nares present Mouth: Yes moist mucous membranes Eyes: General: appearance normal, both eyes and all related structures Sclera: sclerae normal Neck: Neck: supple Resp: Other: Few scattered wheezes Cardio: Rate: regular rate Rhythm: regular rhythm GI: Auscultation: normal bowel sounds Skin: General skin exam: normal color Neuro: Speech: normal speech Sensory Exam: normal sensation Extrem: General: normal to inspection Psych: Affect: Anxious affect present Objective Data Vital Signs Vital Signs: Vi
[2019-08-08 18:46] LABS: Glucose Point of Care 138 (65-105)
[2019-08-08 19:42] LABS: Vancomycin Trough 11.7 ug/mL (10.0-20.0)
[2019-08-08] MEDS: LATANOPROST 0.005% OP SOLN 2.5 ML BTL 1 DROP RIGHT EYE (20:55)
[2019-08-08 21:38] LABS: Glucose Point of Care 173 (65-105)
[2019-08-09 02:01] VITALS: PULSE 77; RESP 18
[2019-08-09] MEDS: IPRATROPIUM BR 0.02% INH SOLN 0.5 MG/2.5 ML VIAL INHALATION ×2 (02:01→08:48)
[2019-08-09] MEDS: ALBUTEROL SULFATE NEB 2.5 MG/0.5 ML INH 5 MG INHALATION ×2 (02:01→08:48)
[2019-08-09 02:11] VITALS: PULSE 78; RESP 18
[2019-08-09 05:43] LABS: Hematocrit 31.3 % (37.0-47.0); Hemoglobin 10.3 g/dL (12.0-15.0); Mean Corpuscular HGB Conc 32.9 g/dl (32-36); Mean Corpuscular Volume 88.2 fl (80-100); Mean Platelet Volume 9.7 fl (7.4-10.4); Platelet Count Result 181 k/mm3 (150-375); Red Blood Count 3.55 M/mm3 (4.2-5.4); Red Cell Distribution Width 12.8 % (11.5-14.5); White Blood Count 4.1 K/mm3 (4.5-10.0)
[2019-08-09 05:48] LABS: Blood Urea Nitrogen 9 mg/dL (7-17); Calcium 8.6 mg/dL (8.4-10.2); Carbon Dioxide 35 mmol/L (22-30); Chloride 97 mmol/L (98-107); Estimated CRCL calculation 69 ml/min; Estimated Glomerular Filt Rate > 60; Glucose 158 mg/dL (65-105); Potassium 3.4 mmol/L (3.4-5.0); Sodium 138 mmol/L (137-145)
[2019-08-09 06:00] VITALS: BP 144/67; PULSE 78; RESP 20; TEMP 37.1; O2SAT 97
[2019-08-09] MEDS: POTASSIUM CHLORIDE 20 MEQ TABLET 40 MEQ PO (08:23)
[2019-08-09] MEDS: ENOXAPARIN 40 MG/0.4 ML SYRINGE SUB-Q (08:24)
[2019-08-09] MEDS: metFORMIN HCL 500 MG TABLET PO (08:24)
[2019-08-09 08:50] VITALS: PULSE 78; RESP 20
[2019-08-09 08:58] VITALS: PULSE 85; RESP 20
--- NOTE | 2019-08-09 09:25 | PM.DS ---
DS: Diagnosis Admitting Diagnosis Admitting Diagnosis: Influenza due to unidentified influenza virus with unspecified type of pneumonia Discharge Diagnosis (1) Uncontrolled diabetes mellitus: Code(s): E11.65 - Type 2 diabetes mellitus with hyperglycemia Status: Acute Assessment and Plan: with A1c of 10 with uncontrolled DM will have hospice educator educate the patient (2) Hypokalemia: Code(s): E87.6 - Hypokalemia Status: Acute Assessment and Plan: Most likely secondary to poor p.o. intake and general illness. (3) Influenza: Code(s): J11.1 - Influenza due to unidentified influenza virus with other respiratory manifestations Status: Acute Assessment and Plan: Plan is above. Pt did not have the tamiflu (4) Pneumonia: Qualifiers: Laterality: bilateral Lung location: lower lobe of lung Pneumonia type: due to influenza A virus Qualified Code(s): J11.00 - Influenza due to unidentified influenza virus with unspecified type of pneumonia Code(s): J18.9 - Pneumonia, unspecified organism Status: Acute Assessment and Plan: 59 year old female with a past medical history of type 2 diabetes, mild obstructive sleep apnea and recent diagnosis of influenza A who presented to the ER with ongoing cough, congestion and fever. Patient reports that she became ill on July 25 after she returned from a cruise to the [place]. She was evaluated in the ER on July 28 and was diagnosed with influenza A and discharged home with prescriptions for pseudoephedrine, Zofran, ibuprofen, and albuterol inhaler. She was not given Tamiflu. See presented emergency department on 08/01 with cough shortness of breath patient was positive for pneumonia as she was positive for influenza A earlier patient is being treated azithromycin Rocephin and vancomycin, today patient is feeling better a short of breath cough is also improved denies any fever or chills wants to go home, repeat chest x-ray still shows persistent pneumonia I have discussed with the patient will continue IV antibiotics for 1 more day and may discharge the patient tomorrow morning DS: Summary Hospital Course Reason for hospitalization: Kaur Douglas is a 59 year old female with a past medical history of type 2 diabetes, mild obstructive sleep apnea and recent diagnosis of influenza A who presented to the ER with ongoing cough, congestion and fever. Patient reports that she became ill on July 25 after she returned from a cruise to the [facility]. She was evaluated in the ER on July 28 and was diagnosed with influenza A and discharged home with prescriptions for pseudoephedrine, Zofran, ibuprofen, and albuterol inhaler. She was not given Tamiflu. Her who symptoms did not start until after the patient started having symptoms was given a prescription for Tamiflu. The patient reports that despite directed her cough is actually worsened and she has been more short of breath. She must of been hypoxic in the ER as she was started on nasal cannula oxygen. However hypoxia was not documented in the vitals. Her cough is occasionally productive of blood streaked sputum. However she thinks that the blood is coming from her nose because when she blows her nose she has blood streaked mucus. She has been having nasal congestion and postnasal drip. She denies any headache or visual changes. She has been feeling generally weak. She was afebrile when she arrived to the ER. Her last fever at home was a couple of days ago was greater than 102?. She has had decreased oral intake/appetite and subsequently has not had a bowel movement in a couple of days. She denies any abdominal pain, nausea or vomiting. She has had some mild decreased urine output in her urine has been more concentrated. She stated that the breathing treatment that she received in the ER helped with her shortness of breath. Hospital Course: 59 year old female wi
[2019-08-09 09:38] LABS: Glucose Point of Care 187 (65-105)
== END 2019-08-09 11:50 | disposition home or self-care (01) | DRG 139 ==
LOC: ANHED 15:31 → ANH2MED 21:41
PROVIDERS: Internal Medicine; Physician Assistant; Admitting Provider Internal Medicine; Emergency Provider Emergency Medicine; PCP Family Medicine Adolescent Medicine; Visit Provider Family Medicine
DX: J10.00 Influenza due to other identified influenza virus with unspecified type of pneumonia (principal); E11.65 Type 2 diabetes mellitus with hyperglycemia; E87.6 Hypokalemia; E78.5 Hyperlipidemia, unspecified; G47.33 Obstructive sleep apnea (adult) (pediatric); Z90.710 Acquired absence of both cervix and uterus
CPT/HCPCS: 36415; 71046; 71275; 80048; 80202; 83036; 83605; 85025; 85027; 87040; 93005; 94640; 96365; 96366; 96367; 99285; A9270; J0456; J0696; J1650; J1815; J3370; J7030; J7060; Q9967

== ENCOUNTER 2020-03-24 07:53 | Outpatient (CLI) | payer OTHER, SELFPAY ==
--- NOTE | ~2020-03-24 | MM_ITS ---
EXAMINATION: MM screening [facility] BI w radha HISTORY: Screening mammogram TECHNIQUE: Craniocaudal and mediolateral oblique 3-D tomosynthesis images were obtained and synthetic 2-D images were generated. CAD analysis was submitted and interpreted. COMPARISON: 02/12/2019, 02/09/2018, 04/15/2016 BREAST PARENCHYMAL COMPOSITION: There are scattered areas of fibroglandular density. FINDINGS: Stable focal asymmetry is present in the posterior third of the upper left breast. There is no evidence of suspicious mass, calcification, or architectural distortion to suggest malignancy in either breast. There has been no suspicious interval change. IMPRESSION: 1. No mammographic evidence of malignancy. 2. Recommend routine screening mammography in one year. BI-RADS Category 2: Benign finding(s). Reviewed, dictated and finalized at location A.
== END 2020-03-24 07:54 | disposition home or self-care (01) ==
LOC: ANHIMG 07:55
PROVIDERS: PCP Family Medicine Adolescent Medicine; Visit Provider Family Medicine Adolescent Medicine
DX: Z12.31 Encounter for screening mammogram for malignant neoplasm of breast (principal)
CPT/HCPCS: 77063; 77067

== ENCOUNTER 2021-05-30 09:02 | Outpatient (CLI) | payer OTHER, SELFPAY ==
--- NOTE | ~2021-05-30 | MM_ITS ---
EXAMINATION: MM screening [facility] BI w radha HISTORY: Screening mammogram TECHNIQUE: Craniocaudal and mediolateral oblique 3-D tomosynthesis images were obtained and synthetic 2-D images were generated. CAD analysis was submitted and interpreted. COMPARISON: 03/24/2020, 02/12/2019, 02/09/2018 BREAST PARENCHYMAL COMPOSITION: There are scattered areas of fibroglandular density. FINDINGS: Stable focal asymmetry is again noted in the posterior third of the upper left breast. Ther e is no evidence of suspicious mass, calcification, or architectural distortion to suggest malignancy in either breast. There has been no suspicious interval change. IMPRESSION: 1. No mammographic evidence of malignancy. 2. Recommend routine screening mammography in one year. BI-RADS Category 2: Benign finding(s). Reviewed, dictated and finalized at location A. [employer]
== END 2021-05-30 09:03 | disposition home or self-care (01) ==
LOC: ANHIMG 09:06
PROVIDERS: PCP Family Medicine Adolescent Medicine; Visit Provider Family Medicine Adolescent Medicine
DX: Z12.31 Encounter for screening mammogram for malignant neoplasm of breast (principal)
CPT/HCPCS: 77063; 77067

== ENCOUNTER 2023-04-19 16:50 | Emergency (ER) | payer OTHER, SELFPAY ==
[2023-04-19 17:16] VITALS: BP 155/79; PULSE 95; RESP 20; TEMP 36.4; O2SAT 99
[2023-04-19 19:32] VITALS: BP 159/82; PULSE 85; RESP 18; TEMP 36.5; O2SAT 97
--- NOTE | 2023-04-19 19:57 | ED.GENADULT ---
HPI - General Adult General Chief complaint: Animal Bite Stated complaint: dog bite Time Seen by Provider: 04/19/23 19:32 History of Present Illness HPI narrative: This is a 62-year-old female the ED for a dog bite. She was at a client's house when 1 of their dogs bit her at the back of the leg. The dogs are up-to-date on their rabies shot. No other injuries. Patient has unknown last tetanus. Related Data Allergies Allergy/AdvReac Type Severity Reaction Status Date / Time codeine Allergy Severe SOB Verified 04/19/23 19:48 [facility] Past Medical History Medical History DDD (degenerative disc disease) Diabetes Glaucoma Right eye Hyperlipidemia Kidney stone on right side (2017) Seasonal allergies Sleep apnea (2015) Mild obstructive sleep apnea noted on sleep study from September 2015 Surgical History Surgical History H/O lithotripsy 2001 and 2006 H/O oral surgery History of bladder surgery History of total abdominal hysterectomy and bilateral salpingo-oophorectomy (2011) For benign causes Hx of section Family History Family History Grandparent Cerebrovascular accident Cervical cancer Father Diabetes mellitus Dementia Asthma Mother Diabetes mellitus Sibling Diabetes mellitus Thyroid disease Social History Social History Social History: Primary care physician: Dr. Joel Flores Code status: Full code Smoking status: Never smoker Second hand tobacco smoke exposure: No Alcohol intake: never Substance use: never Substance use type: does not use Lack of Transportation: No Lack of Food: Never True Current Housing: Decline to Answer Concerned About Future Housing: Decline to Answer Difficulty Paying Gas/Electric Bills: Decline to Answer Difficulty Paying for Meds: Decline to Answer Currently Unemployed: Decline to Answer Education: Bachelor's Degree Difficulty w/ Childcare or Family Care: No Living arrangements: with family Additional living arrangements comments: She lives at home with her of 37 years. She has 2 adult children her relatively healthy. 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 Gender identity (if verbalized by the patient): Female Spiritual care concerns: No Agree to blood products: Yes Exam Narrative: APPEARANCE: No apparent distress. Head: atraumatic. EYES: EOMI, NOSE: Atraumatic NECK: Trachea midline RESPIRATORY: No increased rate of breathing CARDIOVASCULAR: RRR, ABDOMINAL: Non-distended MUSCULOSKELETAl: No obvious deformities NEURO: Alert. Moving 4/4 extremities SKIN:: 2 superficial punctures to the back thigh PSYCHIATRIC: Normal affect Course Vital Signs Vital signs: Vital Signs Temperature 97.5 F L 04/19/23 17:16 Pulse Rate 95 04/19/23 17:16 Respiratory Rate 20 04/19/23 17:16 Blood Pressure 155/79 H 04/19/23 17:16 Pulse Oximetry 99 04/19/23 17:16 Temperature 97.7 F 04/19/23 19:32 Pulse Rate 85 04/19/23 19:32 Respiratory Rate 18 04/19/23 19:32 Blood Pressure 159/82 H 04/19/23 19:32 Pulse Oximetry 97 04/19/23 19:32 Medical Decision Making [facility] Narrative Medical decision making narrative: -Course: This 62-year-old female presenting after a dog bite. She has 2 superficial punctures. Her tetanus will be updated to given Augmentin with return precautions. No concern forrabies as the dogs are vaccinated. -DDX includes but is not limited to: Dog bite, soft tissue injury -Co-morbidities complicating care: Diabetes -Social determinants of health: Works as a house a manager underwriting, lives with her and dog -Interventions: Augmentin Tdap -Baldemar
[2023-04-19] MEDS: TETANUS,DIPHTHERIA,AC PERTUSSIS ADULT (0.5 ML) BOOSTRIX IM (20:10)
[2023-04-19] MEDS: AMOXICILLIN/CLAVULANATE K 875-125 MG TAB 1 TABLET PO (20:10)
== END 2023-04-19 20:15 | disposition home or self-care (01) ==
PROVIDERS: Emergency Provider Emergency Medicine; PCP Family Medicine Adolescent Medicine
DX: S71.151A Open bite, right thigh, initial encounter (principal); Z23 Encounter for immunization; W54.0XXA Bitten by dog, initial encounter
CPT/HCPCS: 90471; 90715; 99283; A9270

== ENCOUNTER 2023-05-14 09:03 | Outpatient (CLI) | payer OTHER, SELFPAY ==
--- NOTE | 2023-05-14 11:00 | NEURO_ITS ---
Impression: # Complains of numbness of right hand. # Right Carpal Tunnel Syndrome. # Right ulnar neuropathy around the elbow. # Needle/EMG exam mildly neurogenic. Nerve Conduction Studies Anti Sensory Summary Table Stim Site NR Peak (ms) P-T Amp (?V) Site1 Site2 Delta-P (ms) Dist (cm) Preston (m/s) Right Median Anti Sensory (2-3nd Digit) Wrist 3.6 35.6 Wrist 2-3nd Digit 3.6 14.0 39 Wrist 3.8 37.3 Wrist 2-3nd Digit 3.6 14.0 39 Right Radial Anti Sensory (Base 1st Digit) Wrist 2.3 21.1 Wrist Base 1st Digit 2.3 0.0 Right Ulnar Anti Sensory (5th Digit) Wrist 2.5 48.1 Wrist 5th Digit 2.5 14.0 56 Motor Summary Table Stim Site NR Onset (ms) O-P Amp (mV) Site1 Site2 Delta-0 (ms) Dist (cm) Preston (m/s) Right Median Motor (Abd Poll Brev) Wrist 4.4 2.1 Elbow Wrist 5.3 29.0 55 Elbow 9.7 1.9 Right Ulnar Motor (Abd Dig Minimi) Wrist 2.7 7.2 A Elbow Wrist 6.3 30.0 48 A Elbow 9.0 5.7 B Elbow Wrist 4.3 20.0 47 B Elbow 7.0 3.2 F Wave Studies NR F-Lat (ms) L-R F-Lat (ms) Right Median (Mrkrs) (Abd Poll Brev) 29.01 Right Ulnar (Mrkrs) (Abd Dig Min) 29.83 EMG Side Muscle Nerve Root Ins Act Fibs Amp Dur Recrt Comment Right 1stDorInt Ulnar C8-T1 Nml Nml Nml >12ms Reduced Right Ext Indicis Radial (Post Int) C7-8 Nml Nml Nml Nml Nml Right Ext Digitorum Radial (Post Int) C7-8 Nml Nml Nml Nml Nml Right BrachioRad Radial C5-6 Nml Nml Nml Nml Nml Right PronatorTeres Median C6-7 Nml Nml Nml Nml Nml Right Abd Poll Brev Median C8-T1 Nml Nml Nml >12ms Reduced Right ABD Dig Min Ulnar C8-T1 Nml Nml Nml >12ms Reduced MTDD
== END 2023-05-14 09:04 | disposition home or self-care (01) ==
LOC: ANHNEURO 09:08
PROVIDERS: PCP Family Medicine Adolescent Medicine; Visit Provider Physician Assistant
DX: R20.2 Paresthesia of skin (principal); G56.01 Carpal tunnel syndrome, right upper limb; G56.21 Lesion of ulnar nerve, right upper limb
CPT/HCPCS: 95886; 95909

== ENCOUNTER 2023-11-18 01:51 | Day surgery (SDC) | payer OTHER, SELFPAY ==
[2023-10-30 14:31] VITALS: BMI 26.6
[2023-11-18 08:23] VITALS: BP 135/74; PULSE 83; RESP 18; TEMP 36.2; O2SAT 98
[2023-11-18] MEDS: LACTATED RINGERS 1,000 ML 150 ML IV CONT (08:39)
[2023-11-18 08:44] LABS: Glucose Point of Care 130 mg/dl (65-105)
--- NOTE | 2023-11-18 09:14 | WPDANESEPPF ---
Anes - Initial Pre Proc Eval Procedure: Operation Date: 11/18/23 09:30 Proposed Procedures p Screening Colonoscopy - Víctor Salinas DO Date/Time: 11/18/23 09:14 Surgeon: Víctor Salinas DO Pre Op Diagnosis: Screening for malignant neoplasm of colon Patient Data Age: 63 Gender: F Height: 1.68 m Weight: 71.6 kg Last Vital Signs Temp 36.2 C L 11/18/23 08:23 Pulse 83 11/18/23 08:23 Resp 18 11/18/23 08:23 BP 135/74 11/18/23 08:23 Pulse Ox 98 11/18/23 08:23 O2 Del Method Room Air 11/18/23 08:23 Allergies Allergy/AdvReac Type Severity Reaction Status Date / Time codeine Allergy Severe SOB Verified 11/18/23 08:21 Home Medications Medication Instructions Recorded Confirmed Type metformin 500 mg tablet,extended See Rx Instructions .Route 02/16/23 10/30/23 Rx release 24 hr .COMPLEX #360 tabs empagliflozin 25 mg tablet 25 mg PO DAILY 10/30/23 10/30/23 History (Jardiance) fenofibrate nanocrystallized 145 145 mg PO DAILY 10/30/23 10/30/23 History mg tablet Laboratory Tests 11/18/23 08:38 POC Capillary Glucose 130 H mg/dl (65-105) Patient hx anesthesia problems: none Family hx anesthesia problems: none Results Review: All pre-operative results and documents have been reviewed as part of the pre-operative evaluation. [facility] Past Medical History Medical History DDD (degenerative disc disease) Diabetes Glaucoma Right eye Hyperlipidemia Kidney stone on right side (2017) Seasonal allergies Sleep apnea (2015) Mild obstructive sleep apnea noted on sleep study from September 2015 Surgical History Surgical History H/O lithotripsy 2001 and 2006 H/O oral surgery History of bladder surgery History of total abdominal hysterectomy and bilateral salpingo-oophorectomy (2011) For benign causes Hx of section Family History Family History Grandparent Cerebrovascular accident Cervical cancer Father Diabetes mellitus Dementia Asthma Mother Diabetes mellitus Sibling Diabetes mellitus Thyroid disease Social History Social History Social History: Primary care physician: Dr. Joel Flores Code status: Full code Smoking status: Never smoker Second hand tobacco smoke exposure: No Alcohol intake: current Drinks per week: 1 Substance use: never Substance use type: does not use Lack of Transportation: No Lack of Food: Never True Current Housing: Decline to Answer Concerned About Future Housing: Decline to Answer Difficulty Paying Gas/Electric Bills: Decline to Answer Difficulty Paying for Meds: Decline to Answer Currently Unemployed: Decline to Answer Education: Decline to Answer Difficulty w/ Childcare or Family Care: Decline to Answer Living arrangements: with family Additional living arrangements comments: She lives at home with her of 37 years. She has 2 adult children her relatively healthy. 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 Gender identity (if verbalized by the patient): Female Spiritual care concerns: No Agree to blood products: Yes Anes - Eval Final PreProcedure Day of Procedure 11/18/23 09:14 Patient weight: overweight Heart: regular rate and rhythm Lungs: clear to auscultation Airway: Mallampati scale class II Neurological: alert and oriented Last oral intake: >/= 8 hours ASA classification: III Emergent: no Anesthetic plan: proceed Anesthesia type and monitoring: general GIVS and standard monitoring Results Review: All pre-operative results and documents have been reviewed as part of the pre-operative evaluation. Informed Consent:
--- NOTE | 2023-11-18 09:33 | PM.IMHP ---
H&P: HPI History of Present Illness Date/Time: 11/18/23 09:33 Chief Complaint: screening for colorectal cancer Narrative: this is a 63-year-old woman who presents for colonoscopy. Her last colonoscopy was 12 years ago. She states this was normal back then. She denies any hematochezia or melena. Denies family history of colon cancer. Review of Systems Review of Systems: All systems reviewed & are unremarkable except as noted in HPI and below Constitutional: Constitutional: Denies chills, Denies fever(s), Denies headache(s) and Denies weight loss Eyes: Eyes: Denies change in vision ENT: Denies dizziness, Denies headache(s), Denies neck mass and Denies throat swelling Cardiovascular: Cardiovascular: Denies chest pain, Denies lightheadedness and Denies dyspnea Respiratory: Respiratory: Denies cough, Denies dyspnea and Denies wheezing Gastrointestinal: Gastrointestinal: Denies abdominal pain, Denies change in bowel habits, Denies nausea and Denies vomiting Genitourinary: Genitourinary: Denies hematuria and Denies dysuria Musculoskeletal: Musculoskeletal: Reports as per HPI Integumentary/Breasts: Skin/Breast: Reports as per HPI Neurologic: Denies dizziness and Denies headache(s) Allergic/Immunologic: Allergic/Immunologic: Denies throat swelling and Denies wheezing PMF Past Medical History Medical History DDD (degenerative disc disease) Diabetes Glaucoma Right eye Hyperlipidemia Kidney stone on right side (2017) Seasonal allergies Sleep apnea (2015) Mild obstructive sleep apnea noted on sleep study from September 2015 Surgical History Surgical History H/O lithotripsy 2001 and 2006 H/O oral surgery History of bladder surgery History of total abdominal hysterectomy and bilateral salpingo-oophorectomy (2011) For benign causes Hx of section Family History Family History Grandparent Cerebrovascular accident Cervical cancer Father Diabetes mellitus Dementia Asthma Mother Diabetes mellitus Sibling Diabetes mellitus Thyroid disease Social History Social History Social History: Primary care physician: Dr. Joel Flores Code status: Full code Smoking status: Never smoker Second hand tobacco smoke exposure: No Alcohol intake: current Drinks per week: 1 Substance use: never Substance use type: does not use Lack of Transportation: No Lack of Food: Never True Current Housing: Decline to Answer Concerned About Future Housing: Decline to Answer Difficulty Paying Gas/Electric Bills: Decline to Answer Difficulty Paying for Meds: Decline to Answer Currently Unemployed: Decline to Answer Education: Decline to Answer Difficulty w/ Childcare or Family Care: Decline to Answer Living arrangements: with family Additional living arrangements comments: She lives at home with her of 37 years. She has 2 adult children her relatively healthy. 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 Gender identity (if verbalized by the patient): Female Spiritual care concerns: No Agree to blood products: Yes Meds Home Medications and Allergies Home Medications Medication Instructions Recorded Confirmed Type metformin 500 mg tablet,extended See Rx Instructions .Route 02/16/23 10/30/23 Rx release 24 hr .COMPLEX #360 tabs empagliflozin 25 mg tablet 25 mg PO DAILY 10/30/23 10/30/23 History (Jardiance) fenofibrate nanocrystallized 145 145 mg PO DAILY 10/30/23 10/30/23 History mg tablet Allergies Allergy/AdvReac Type Severity Reaction Status Date / Time codeine Allergy Severe SOB Verified 11/18/23 08:21 Vital Signs Vi
[2023-11-18 10:08] VITALS: BP 108/66; PULSE 78; RESP 18; O2SAT 98
[2023-11-18 10:18] VITALS: BP 114/71; PULSE 74; RESP 21; O2SAT 98
[2023-11-18 10:28] VITALS: BP 128/72; PULSE 75; RESP 17; O2SAT 100
== END 2023-11-18 10:44 | disposition home or self-care (01) ==
PROVIDERS: PCP Family Medicine Adolescent Medicine; Visit Provider Surgery
PROC: 0DJD8ZZ Inspection of Lower Intestinal Tract, Via Natural or Artificial Opening Endoscopic (ICD-10-PCS; CPT 45378; principal; 2023-11-18 09:30)
DX: Z12.11 Encounter for screening for malignant neoplasm of colon (principal); K57.30 Diverticulosis of large intestine without perforation or abscess without bleeding; E11.9 Type 2 diabetes mellitus without complications; E78.5 Hyperlipidemia, unspecified; G47.33 Obstructive sleep apnea (adult) (pediatric); H40.9 Unspecified glaucoma; Z90.710 Acquired absence of both cervix and uterus
CPT/HCPCS: 45378; 82948; J2001; J2704; J7120

== ENCOUNTER 2024-01-30 09:01 | Outpatient (CLI) | payer OTHER, SELFPAY ==
--- NOTE | ~2024-01-30 | MM_ITS ---
EXAMINATION: MM screening nilay BI w radha HISTORY: Screening TECHNIQUE: Craniocaudal and mediolateral oblique 3-D tomosynthesis images were obtained and synthetic 2-D images were generated. CAD analysis was submitted and interpreted. COMPARISON: Comparison to multiple prior studies sequentially, with oldest reviewed study dated 03/26. BREAST PARENCHYMAL COMPOSITION: Dense: The breasts are heterogeneously dense, which may obscure small masses FINDINGS: There is no evidence of suspicious mass, calcification, or architectural distortion to sugg est malignancy in either breast. There has been no suspicious interval change. IMPRESSION: 1. No mammographic evidence of malignancy. 2. Recommend routine screening mammography in one year. BI-RADS Category 1: Negative Reviewed, dictated and finalized at location B.
== END 2024-01-30 09:02 | disposition home or self-care (01) ==
LOC: ANHIMG 09:04
PROVIDERS: PCP Family Medicine Adolescent Medicine; Visit Provider Family Medicine Adolescent Medicine
DX: Z12.31 Encounter for screening mammogram for malignant neoplasm of breast (principal)
CPT/HCPCS: 77063; 77067